=== PATIENT | male | born 1970 | race Hispanic/Latino ===

== ENCOUNTER 2018-04-22 13:16 | Emergency (ER) ==
[~2018-04-22] VITALS: Ht 170.2 cm; Wt 149.7 kg
--- OUTSIDE RECORDS SUMMARY | 2018-04-22 13:19 | XMS REPORT | Continuity of Care Document ---
Author Author [facility] Interface Address Unknown Phone Unavailable Problems Problem Status Onset Date Classification Date Reported Comments Source M62.82 - RHABDOMYOLYSIS Active 09/17/2017 [facility] ANKLE PAIN, LEUKOCYTOSIS Active 01/11/2014 [facility] LEG PAIN Active 01/11/2014 [facility] DIZZY Active 02/20/2011 [facility] LEUKOCYTOSIS NOS Active [facility] Medications Medication Details Route Status Patient Instructions Ordering Provider Order Date Source Amoxicillin 875 MG / Clavulanate 125 MG Oral Tablet [Augmentin 875-mg] 875 mg=1 tab, PO, Q12H, # 14 tab, 0 Refill(s) Active 01/14/2014 [facility] clindamycin 300 mg oral capsule 300 mg=1 cap, PO, Q6H, # 40 cap, 0 Refill(s) Inactive 01/14/2014 [facility] Colchicine 0.6 MG Oral Tablet 0.6 mg=1 tab, PO, TID, # 2 tab, 0 Refill(s) Active 01/14/2014 [facility] Colcrys 0.6 mg, 1 tab, Route: PO, Drug form: TAB, TID, Dosing Weight 159.091, kg, Start date: 01/12/14 18:00:00, Duration: 30 day, Stop date: 02/11/14 17:00:00 No Longer Active 01/12/2014 [facility] Zosyn 3.375 gm, 100 mL, Route: IVPB, Drug form: PDR/INJ, [id number], Dosing Weight 159.091, kg, CrCl Notes: (Same as: Zosyn) Infuse over 4 hours. Activate and reconstitute before use. Dosing based on Piperacillin component No Longer Active 01/12/2014 [facility] Enoxaparin 40 mg, 0.4 mL, Route: SUB-Q, Drug form: INJ, [id number], Dosing Weight 159.091, kg, Consider for obese patients, Start date: 01/12/14 10:00:00, Duration: 30 day, Stop date: 02/10/14 22:00:00Notes: (Same as: Lovenox) No Longer Active 01/12/2014 [facility] Saline Flush 0.9% 10 ml, Route: IVP, Drug Form: INJ, Dosing Weight 159.091, kg, PRN, PRN Line Flush, Start date: 01/12/14 6:31:00, Duration: 30 day, Stop date: 02/11/14 6:30:00Notes: (Same as: BD Posiflush) No Longer Active 01/12/2014 [facility] D5W 1/2NS + KCL 20mEq/L 1000ml (Premix) 1000 mL 1,000 mL, Rate: 70 ml/hr, Infuse over: 14.3 hr, Route: IV, Dosing Weight 159.091 kg, Total Volume: 1,000, Start date: 01/12/14 6:31:00, Duration: 30 day, Stop date: 02/11/14 6:30:00Notes: PREMIX IV - Do Not Alter No Longer Active 01/12/2014 [facility] Morphine 4 mg, 2 mL, Route: IVP, Drug form: INJ, Q3H, Dosing Weight 159.091, kg, PRN Pain Score 4-6, Start date: 01/12/14 6:31:00, Duration: 30 day, Stop date: 02/11/14 6:30:00Notes: (Same as:MORPhine Sulfate) No Longer Active 01/12/2014 [facility] Ondansetron 4 mg, 2 mL, Route: IVP, Drug form: INJ, Q8H, Dosing Weight 159.091, kg, PRN Nausea & Vomiting, Start date: 01/12/14 6:31:00, Duration: 30 day, Stop date: 02/11/14 6:30:00Notes: (Same as: Zofran) No Longer Active 01/12/2014 [facility] Zosyn 3.375 gm, Route: IVPB, Drug form: PDR/INJ, ONCE, Dosing Weight 159.091, kg, Priority: STAT, Start date: 01/12/14 4:41:00, Stop date: 01/12/14 4:41:00 Inactive 01/12/2014 [facility] Ketorolac 30 mg, 1 mL, Route: IVP, Drug form: INJ, ONCE, Dosing Weight 159.091, kg, Priority: STAT, Start date: 01/11/14 23:25:00, Stop date: 01/11/14 23:25:00Notes: (Same as:Toradol) IV bolus must be given >15 seconds. Give IM administration slowly and deeply into the muscle. Not for use > 4 days Inactive 01/12/2014 [facility] Morphine 4 mg, Route: IVP, ONCE, Dosing Weight 159.091, kg, Priority: STAT, Start date: 01/11/14 23:21:00, Stop date: 01/11/14 23:21:00 Inactive 01/12/2014 [facility] Valium 5 mg oral tablet 5 mg, 1 tab, PO, Bedtime, PRN, 7 tab, Prn Dizziness, Substitution Allowed PO Active [facility] 02/20/2011 [facility] Zofran ODT 4 mg oral tablet, disintegrating 4 mg, 1 tab, PO, TID, PRN, 10 tab, Nausea and Vomiting, Substitution Allowed PO Active [facility] 02/20/2011 [facility] Antivert 25 mg oral tablet 25 mg, 1 tab, PO, TID, PRN, 30 tab, as needed for dizziness, Substitution Allowed PO Active [facility] 02/20/2011 [facility] ondansetron 4 mg, Route: PO, Drug form: TABDIS, ONCE, Priority: STAT, Start date: 02/20/11 12:08:00, Stop date: 02/20/11 12:08:00 PO No Longer Active [facility] 02/20/2011 [facility] Valium 5 mg, Route: PO, Drug form: TAB, ONCE, Start date: 02/20/11 12:07:00, Stop date: 02/20/11 12:07:00 PO No Longer Active [facility] 02/20/2011 [facility] Antivert 25 mg, Route: PO, Drug form: TAB, ONCE, Start date: 02/20/11 12:07:00, Stop date: 02/20/11 12:07:00 PO No Longer Active [facility] 02/20/2011 [facility] Allergies, Adverse Reactions, Alerts Substance Category Reaction Severity Reaction type Status Date Reported Comments Source Immunizations Immunization Date Given Site Status Last Updated Comments Source Results Order Name Results Value Reference Range Date Interpretation Comments Source Ext Lower limited non vascular US Ext Lower limited non vascular US EXAM: EXTREMITY LOWER NONVASCULAR ULTRASOUND DATE: 09/17/2017 INDICATION: Rhabdomyolysis. Concern for fluid collection. Cellulitis. COMPARISON: None. TECHNIQUE: Grayscale and color images of the left thigh were obtained. FINDINGS: Underlying subcutaneous thickening of the left medial thigh with edema but without drainable fluid collections. IMPRESSION: Left thigh cellulitis or edema without drainable fluid collections. 09/17/2017 - - Read by: Delmar John MD Dictated Date/time: 09/17/17 16:42 Electronically Signed by: Delmar John MD 09/17/17 16:46 FINAL REPORT [facility] Eosinophils # 0.3 K/CMM 0.0 - 0.5 01/14/2014 [facility] Eosinophils 4.1 % 0.0 - 4.0 01/14/2014 [facility] Monocytes 7.1 % 2.0 - 12.0 01/14/2014 [facility] Basophils 0.5 % 0.0 - 1.0 01/14/2014 [facility] Monocytes # 0.5 K/CMM 0.0 - 0.8 01/14/2014 [facility] Lymphocytes 36.1 % 20.0 - 40.0 01/14/2014 [facility] Segs 52.2 % 45.0 - 75.0 01/14/2014 [facility] Segs-Bands # 3.7 K/CMM 1.5 - 8.1 01/14/2014 [facility] Lymphocytes # 2.6 K/CMM 1.0 - 5.5 01/14/2014 [facility] MCHC 33.5 g/dL 32.0 - 36.0 01/14/2014 [facility] Platelet 163 K/CMM 133 - 450 01/14/2014 [facility] RDW 13.7 % 11.5 - 14.5 01/14/2014 [facility] MPV 10.3 fL 7.4 - 10.4 01/14/2014 [facility] MCV 87.7 fL 80.0 - 94.0 01/14/2014 [facility] MCH 29.4 pg 27.0 - 31.0 01/14/2014 [facility] WBC 7.2 K/CMM 3.7 - 10.4 01/14/2014 [facility] Hgb 13.6 g/dL 14.0 - 18.0 01/14/2014 [facility] HEMATOLOGY Hct 40.6 % 42.0 - 54.0 01/14/2014 [facility] HEMATOLOGY RBC 4.63 M/CMM 4.70 - 6.10 01/14/2014 [facility] Foot w/wo contrast CT Foot w/wo contrast CT Examination: CT scan of the right ankle and foot with and without contrast without contrast. HISTORY: Pain, Trauma COMPARISON: Plain films of the right ankle and foot from 01/11/2014 DLP: 651.55 TECHNIQUE: Multiple axial CT images of the right ankle and foot were obtained with and without the administration of intravenous contrast. Multiplanar reformatted images were subsequently performed. FINDINGS: No acute bony fracture, joint dislocation, or suspicious osseous erosion is seen. There is mild tibiotalar joint osteoarthrosis with mild joint space narrowing and marginal osteophyte formation. Posterior and plantar calcaneal enthesophytes are seen. The tendons about the ankle and foot are grossly intact. There is mild bimalleolar superficial soft tissue along the ankle extending along the dorsum of the foot. No rim-enhancing hypodense fluid collection to suggest abscess is seen. IMPRESSION: 1. No acute bony abnormality of the right ankle or right foot. 2. Mild tibiotalar joint osteoarthrosis. 3. Mild nonspecific edema about the ankle extending along the dorsum of the foot. 4. No rim-enhancing fluid collection. SL: 12 01/13/2014 - - Read by: Larry Sage MD Dictated Date/time: 01/13/14 15:50 Electronically Signed by: Larry Sage MD 01/13/14 15:55 FINAL REPORT [facility] Ankle w/wo contrast CT Ankle w/wo contrast CT Examination: CT scan of the right ankle and foot with and without contrast without contrast. HISTORY: Pain, Trauma COMPARISON: Plain films of the right ankle and foot from 01/11/2014 DLP: 651.55 TECHNIQUE: Multiple axial CT images of the right ankle and foot were obtained with and without the administration of intravenous contrast. Multiplanar reformatted images were subsequently performed. FINDINGS: No acute bony fracture, joint dislocation, or suspicious osseous erosion is seen. There is mild tibiotalar joint osteoarthrosis with mild joint space narrowing and marginal osteophyte formation. Posterior and plantar calcaneal enthesophytes are seen. The tendons about the ankle and foot are grossly intact. There is mild bimalleolar superficial soft tissue along the ankle extending along the dorsum of the foot. No rim-enhancing hypodense fluid collection to suggest abscess is seen. IMPRESSION: 1. No acute bony abnormality of the right ankle or right foot. 2. Mild tibiotalar joint osteoarthrosis. 3. Mild nonspecific edema about the ankle extending along the dorsum of the foot. 4. No rim-enhancing fluid collection. SL: 12 01/13/2014 - - Read by: Larry Sage MD Dictated Date/time: 01/13/14 15:50 Electronically Signed by: Larry Sage MD 01/13/14 15:55 FINAL REPORT [facility] CHEM PANEL Magnesium Lvl 2.0 mg/dL 1.8 - 2.4 01/13/2014 [facility] CHEM PANEL Calcium Lvl 8.7 mg/dL 8.5 - 10.5 01/13/2014 [facility] CHEM PANEL CO2 20 meq/L 24 - 32 01/13/2014 [facility]M PANEL Chloride Lvl 108 meq/L 95 - 109 01/13/2014 [facility]M PANEL Potassium Lvl 4.4 meq/L 3.5 - 5.1 01/13/2014 [facility] CHEM PANEL Creatinine Lvl 0.8 mg/dL 0.5 - 1.4 01/13/2014 [facility] CHEM PANEL Sodium Lvl 139 meq/L 135 - 145 01/13/2014 [facility] CHEM PANEL BUN 13 mg/dL 7 - 22 01/13/2014 [facility] CHEM PANEL Glucose Lvl 107 mg/dL 70 - 99 01/13/2014 3Interpretive Data: Adult reference range values reflect the clinical guidelines of the [place] [employer]. [facility] CHEM PANEL eGFR 109 mL/min/1.73m2 01/13/2014 1Result Comment: The eGFR is calculated using the CKD-EPI formula. In most young, healthy individuals the eGFR will be >90 mL/min/1.73m2. The eGFR declines with age. An eGFR of 60-89 may be normal in some populations, particularly the elderly, for whom the CKD-EPI formula has not been extensively validated. Use of the eGFR is not recommended in the following populations: Individuals with unstable creatinine concentrations, including patients and those with serious co-morbid conditions. Patients with extremes in muscle mass or diet. The data above are obtained from the National Kidney Disease Education Program (NKDEP) which additionally recommends that when the eGFR is used in patients with extremes of body mass index for purposes of drug dosing, the eGFR should be multiplied by the estimated BMI. [facility] CHEM PANEL AGAP 15.4 meq/L 10.0 - 20.0 01/13/2014 [facility] HEMATOLOGY Segs-Bands # 6.5 K/CMM 1.5 - 8.1 01/13/2014 [facility] HEMATOLOGY Basophils 0.9 % 0.0 - 1.0 01/13/2014 [facility] HEMATOLOGY Eosinophils 2.8 % 0.0 - 4.0 01/13/2014 [facility] HEMATOLOGY Monocytes 5.7 % 2.0 - 12.0 01/13/2014 [facility] HEMATOLOGY Lymphocytes 28.3 % 20.0 - 40.0 01/13/2014 [facility] HEMATOLOGY Basophils # 0.1 K/CMM 0.0 - 0.2 01/13/2014 [facility] HEMATOLOGY Eosinophils # 0.3 K/CMM 0.0 - 0.5 01/13/2014 [facility] HEMATOLOGY Monocytes # 0.6 K/CMM 0.0 - 0.8 01/13/2014 [facility] HEMATOLOGY Lymphocytes # 3.0 K/CMM 1.0 - 5.5 01/13/2014 [facility] HEMATOLOGY Segs 62.3 % 45.0 - 75.0 01/13/2014 [facility] MCH 28.7 pg 27.0 - 31.0 01/13/2014 [facility] MCV 87.1 fL 80.0 - 94.0 01/13/2014 [facility] Hct 40.1 % 42.0 - 54.0 01/13/2014 [facility] Hgb 13.2 g/dL 14.0 - 18.0 01/13/2014 [facility] RBC 4.61 M/CMM 4.70 - 6.10 01/13/2014 [facility] WBC 10.5 K/CMM 3.7 - 10.4 01/13/2014 [facility] MCHC 33.0 g/dL 32.0 - 36.0 01/13/2014 [facility] Platelet 142 K/CMM 133 - 450 01/13/2014 [facility] MPV 10.9 fL 7.4 - 10.4 01/13/2014 [facility] RDW 13.4 % 11.5 - 14.5 01/13/2014 [facility] CHEM PANEL Uric Acid 8.1 mg/dL 3.8 - 8.0 01/12/2014 [facility] CHEM PANEL BUN 15 mg/dL 7 - 22 01/12/2014 [facility] CHEM PANEL Glucose Lvl 130 mg/dL 70 - 99 01/12/2014 4Interpretive Data: Adult reference range values reflect the clinical guidelines of the [place] [employer]. [facility] CHEM PANEL AGAP 11.8 meq/L 10.0 - 20.0 01/12/2014 [facility] CHEM PANEL Calcium Lvl 9.2 mg/dL 8.5 - 10.5 01/12/2014 [facility] CHEM PANEL CO2 25 meq/L 24 - 32 01/12/2014 [facility] CHEM PANEL Chloride Lvl 102 meq/L 95 - 109 01/12/2014 [facility] CHEM PANEL Creatinine Lvl 1.0 mg/dL 0.5 - 1.4 01/12/2014 [facility] CHEM PANEL Sodium Lvl 135 meq/L 135 - 145 01/12/2014 [facility] CHEM PANEL Potassium Lvl 3.8 meq/L 3.5 - 5.1 01/12/2014 [facility] CHEM PANEL eGFR 92 mL/min/1.73m2 01/12/2014 2Result Comment: The eGFR is calculated using the CKD-EPI formula. In most young, healthy individuals the eGFR will be >90 mL/min/1.73m2. The eGFR declines with age. An eGFR of 60-89 may be normal in some populations, particularly the elderly, for whom the CKD-EPI formula has not been extensively validated. Use of the eGFR is not recommended in the following populations: Individuals with unstable creatinine concentrations, including patients and those with serious co-morbid conditions. Patients with extremes in muscle mass or diet. The data above are obtained from the National Kidney Disease Education Program (NKDEP) which additionally recommends that when the eGFR is used in patients with extremes of body mass index for purposes of drug dosing, the eGFR should be multiplied by the estimated BMI. [facility] HEMATOLOGY Platelet 195 K/CMM 133 - 450 01/12/2014 [facility] HEMATOLOGY MCH 28.8 pg 27.0 - 31.0 01/12/2014 [facility] HEMATOLOGY RDW 13.5 % 11.5 - 14.5 01/12/2014 [facility] HEMATOLOGY MCHC 33.7 g/dL 32.0 - 36.0 01/12/2014 [facility] MPV 10.5 fL 7.4 - 10.4 01/12/2014 [facility] WBC 12.8 K/CMM 3.7 - 10.4 01/12/2014 [facility] Hgb 14.2 g/dL 14.0 - 18.0 01/12/2014 [facility] RBC 4.92 M/CMM 4.70 - 6.10 01/12/2014 [facility] MCV 85.6 fL 80.0 - 94.0 01/12/2014 [facility] Hct 42.1 % 42.0 - 54.0 01/12/2014 [facility] Sed Rate 17 mm/h 0 - 15 01/12/2014 [facility] Segs-Bands # 8.6 K/CMM 1.5 - 8.1 01/12/2014 [facility] Basophils 0.6 % 0.0 - 1.0 01/12/2014 [facility] Monocytes # 0.9 K/CMM 0.0 - 0.8 01/12/2014 [facility] Eosinophils # 0.3 K/CMM 0.0 - 0.5 01/12/2014 [facility] Basophils # 0.1 K/CMM 0.0 - 0.2 01/12/2014 [facility] Segs 67.0 % 45.0 - 75.0 01/12/2014 [facility] Eosinophils 2.1 % 0.0 - 4.0 01/12/2014 [facility] Monocytes 7.1 % 2.0 - 12.0 01/12/2014 [facility] Lymphocytes 23.2 % 20.0 - 40.0 01/12/2014 [facility] Lymphocytes # 3.0 K/CMM 1.0 - 5.5 01/12/2014 [facility] IMMUNOLOGY C-REACTIVE PROTEIN 17.7 mg/L <=2.9 mg/L 01/12/2014 [facility] Ankle 3 views Ankle 3 views Right ankle, 3 views: CLINICAL HISTORY: Pain and swelling 1. Mild to moderate diffuse soft tissue thickening greatest about the medial malleolus. No definite joint effusion. 2. Mild osteoarthritis along with calcaneal spurs. 3. No acute fracture, dislocation, or focal osseous lesion is appreciated. SL:17 01/11/2014 - - Read by: Ryne Camraa MD Dictated Date/time: 01/11/14 23:40 Electronically Signed by: Ryne Camara MD 01/11/14 23:42 FINAL REPORT [facility] Foot series Foot series Right foot, 3 views: CLINICAL HISTORY: Pain and swelling 1. Mild to moderate diffuse soft tissue thickening. 2. Mild osteoarthritis. 3. No acute fracture, dislocation, or focal osseous lesion is appreciated. An accessory ossicle is seen adjacent to the cuboid. SL:17 01/11/2014 - - Read by: Ryne Camara MD Dictated Date/time: 01/11/14 23:42 Electronically Signed by: Ryne Camara MD 01/11/14 23:43 FINAL REPORT [facility] CHEMISTRY Troponin-I null 0.00 - 0.40 02/20/2011 Normal [facility] CHEMISTRY CK MB 0.6 ng/mL 0.5 - 3.6 02/20/2011 Normal [facility] CHEMISTRY Total CK 123.0 U/L 12 - 191 02/20/2011 Normal [facility] CHEMISTRY AGAP 13.9 meq/L 10.0 - 20.0 02/20/2011 Normal [facility] CHEMISTRY AST 21.0 U/L 0 - 37 02/20/2011 Normal [facility] CHEMISTRY A/G Ratio 1.1 0.7 - 1.6 02/20/2011 Normal [facility] CHEMISTRY B/C Ratio 12.0 6 - 25 02/20/2011 Normal [facility] CHEMISTRY Globulin 3.8 g/dL 2.0 - 4.0 02/20/2011 Normal [facility] CHEMISTRY Bili Total 0.5 mg/dL 0.2 - 1.3 02/20/2011 Normal [facility] CHEMISTRY Total Protein 7.9 g/dL 6.4 - 8.4 02/20/2011 Normal [facility] CHEMISTRY CO2 24.0 meq/L 24 - 32 02/20/2011 Normal [facility] CHEMISTRY Alk Phos 66.0 U/L 39 - 136 02/20/2011 Normal [facility] CHEMISTRY ALT 56.0 U/L 0 - 65 02/20/2011 Normal [facility] CHEMISTRY Calcium Lvl 8.9 mg/dL 8.5 - 10.5 02/20/2011 Normal [facility] CHEMISTRY Albumin Lvl 4.1 g/dL 3.5 - 5.0 02/20/2011 Normal [facility] CHEMISTRY Creatinine Lvl 1.0 mg/dL 0.5 - 1.4 02/20/2011 Normal [facility] CHEMISTRY BUN 12.0 mg/dL 7 - 22 02/20/2011 Normal [facility] CHEMISTRY Sodium Lvl 139.0 meq/L 135 - 145 02/20/2011 Normal [facility] CHEMISTRY Potassium Lvl 3.9 meq/L 3.5 - 5.1 02/20/2011 Normal [facility] CHEMISTRY Chloride Lvl 105.0 meq/L 95 - 109 02/20/2011 Normal [facility] CHEMISTRY Glucose Lvl 98.0 mg/dL 02/20/2011 NA 2Interpretive Data: Reference Ranges : 0 - 7 days : 41 - 90 mg/dL7 days - 150 yrs : 70 - 99 mg/dL (fasting), based on the clinical recommendations of the [place] [employer]. [facility] CHEMISTRY CK MB Index 0.5 0.0 - 2.5 02/20/2011 Normal [facility] HEMATOLOGY RDW 13.0 % 11.5 - 14.5 02/20/2011 Normal [facility] HEMATOLOGY MPV 10.2 fL 7.4 - 10.4 02/20/2011 Normal [facility] HEMATOLOGY Platelet 210.0 K/CMM 133 - 450 02/20/2011 Normal [facility] HEMATOLOGY Hct 42.6 % 42.0 - 54.0 02/20/2011 Normal [facility] HEMATOLOGY MCH 29.8 pg 27.0 - 31.0 02/20/2011 Normal [facility] HEMATOLOGY MCV 85.7 fL 80.0 - 94.0 02/20/2011 Normal [facility] HEMATOLOGY MCHC 34.8 g/dL 32.0 - 36.0 02/20/2011 Normal [facility] HEMATOLOGY RBC 4.97 M/CMM 4.70 - 6.10 02/20/2011 Normal [facility] HEMATOLOGY WBC 9.5 K/CMM 3.7 - 10.4 02/20/2011 Normal [facility] HEMATOLOGY Hgb 14.8 g/dL 14.0 - 18.0 02/20/2011 Normal [facility] HEMATOLOGY Lymphocytes # 2.5 K/CMM 1.0 - 5.5 02/20/2011 Normal [facility] HEMATOLOGY Segs-Bands # 6.1 K/CMM 1.5 - 8.1 02/20/2011 Normal [facility] HEMATOLOGY Eosinophils 2.7 % 0.0 - 4.0 02/20/2011 Normal [facility] HEMATOLOGY Basophils # 0.1 K/CMM 0.0 - 0.2 02/20/2011 Normal [facility] HEMATOLOGY Monocytes # 0.5 K/CMM 0.0 - 0.8 02/20/2011 Normal [facility] HEMATOLOGY Eosinophils # 0.3 K/CMM 0.0 - 0.5 02/20/2011 Normal [facility] HEMATOLOGY Basophils 0.8 % 0.0 - 1.0 02/20/2011 Normal [facility] HEMATOLOGY Monocytes 5.6 % 2.0 - 12.0 02/20/2011 Normal [facility] HEMATOLOGY Segs 64.6 % 45.0 - 75.0 02/20/2011 Normal [facility] HEMATOLOGY Lymphocytes 26.3 % 20.0 - 40.0 02/20/2011 Normal [facility] BEDSIDE GLUCOSE TESTING Gluc POC Lifscn 128.0 mg/dL 65 - 110 02/20/2011 [place] 1Interpretive Data: Upper Reportable Limit: 200 mg/dL. [facility] BEDSIDE GLUCOSE TESTING Comment1 Notify RN/MD 02/20/2011 NA [facility] Vital Signs Vital Sign Value Date Comments Source Diastolic (mm Hg) 78 01/14/2014 [facility] Respitory Rate 16 01/14/2014 [facility] Systolic (mm Hg) 124 01/14/2014 [facility] Heart Rate 55 01/14/2014 [facility] Temperature Oral (F) 97.9 F 01/14/2014 [facility] Temperature Oral (F) 98.2 F 01/14/2014 [facility] Heart Rate 49 01/14/2014 [facility] Respitory Rate 16 01/14/2014 [facility] Systolic (mm Hg) 116 01/14/2014 [facility] Diastolic (mm Hg) 68 01/14/2014 [facility] Respitory Rate 16 01/14/2014 [facility] Temperature Oral (F) 98.1 F 01/14/2014 [facility] Diastolic (mm Hg) 65 01/14/2014 [facility] Systolic (mm Hg) 105 01/14/2014 [facility] Heart Rate 57 01/14/2014 [facility] Height 170.18 cm 01/12/2014 [facility] BMI Calculated 54.93 01/12/2014 [facility] Weight 159.091 01/12/2014 [facility] Temperature Oral (F) 98.2 F 02/20/2011 [facility] Respitory Rate 16.0 02/20/2011 [facility] Systolic (mm Hg) 132.0 02/20/2011 [facility] Heart Rate 64.0 02/20/2011 [facility] Diastolic (mm Hg) 68.0 02/20/2011 [facility] Heart Rate 68.0 02/20/2011 [facility] Respitory Rate 16.0 02/20/2011 [facility] Systolic (mm Hg) 136.0 02/20/2011 [facility] Diastolic (mm Hg) 68.0 02/20/2011 [facility] Weight 150.0 02/20/2011 [facility] Height 170.18 cm 02/20/2011 [facility] Temperature Oral (F) 98.2 F 02/20/2011 [facility] Systolic (mm Hg) 137.0 02/20/2011 [facility] Diastolic (mm Hg) 68.0 02/20/2011 [facility] Respitory Rate 20.0 02/20/2011 [facility] Heart Rate 60.0 02/20/2011 [facility] Encounters Location Location Details Encounter Type Encounter Number Reason For Visit Attending Provider ADM Date DC Date Status Source [facility] Emergency [id number] BLACK RODRIGUEZ 02/20/2011 02/20/2011 Active [facility] Inpatient [id number] Robb Fortune 01/12/2014 01/14/2014 [facility] [place] [facility] [id number] Jermaine Mir 09/17/2017 09/18/2017 [facility] Procedures Procedure Code Date Perfomer Comments Source Repair of hernia of abdominal wall [id number] [facility] Repair of hernia of abdominal wall [id number] [facility]
--- OUTSIDE RECORDS SUMMARY | 2018-04-22 13:19 | XMS REPORT | Summary of Care ---
Author Organization Unknown Address Unknown Phone Unavailable Encounter [facility]eta(MATEO) [id number] Date(s): 01/11/14 - 01/14/14 [facility] [address] [place], [place] [id number] [place] [address] Discharge Disposition: Home Physician Attending: Robb Fortune MD Physician Admitting: Robb Fortune MD Reason for Visit RT ANKLE PAIN, LEUKOCYTOSIS Vital Signs 1 2 3 Most recent to oldest [Reference Range]: 170.18 cm (01/11/14 10:37 PM) Height 97.9 DegF (01/14/14 12:00 PM) 98.2 DegF (01/14/14 8:00 AM) 98.1 DegF (01/14/14 4:00 AM) Temperature Oral [96.4-99.1 DegF] 124 mmHg (01/14/14 12:00 PM) 116 mmHg (01/14/14 8:00 AM) 105 mmHg (01/14/14 4:00 AM) Systolic Blood Pressure [90-140 mmHg] 78 mmHg (01/14/14 12:00 PM) 68 mmHg (01/14/14 8:00 AM) 65 mmHg (01/14/14 4:00 AM) Diastolic Blood Pressure [60-90 mmHg] 16 BRMIN (01/14/14 12:00 PM) 16 BRMIN (01/14/14 8:00 AM) 16 BRMIN (01/14/14 4:00 AM) Respiratory Rate [14-20 BRMIN] 55 bpm *LOW* (01/14/14 12:00 PM) 49 bpm *LOW* (01/14/14 8:00 AM) 57 bpm *LOW* (01/14/14 4:00 AM) Peripheral Pulse Rate [60-100 bpm] 159.091 kg (01/11/14 10:37 PM) Weight 54.93 m2 (01/11/14 10:37 PM) Body Mass Index Problem List No data available for this section Allergies, Adverse Reactions, Alerts Substance Reaction Severity Status NKDA Active Medications Augmentin 875 mg oral tablet 875 mg=1 tab, PO, Q12H, # 14 tab, 0 Refill(s) Start Date: 01/14/14 Stop Date: 01/21/14 Status: Ordered clindamycin 300 mg oral capsule 300 mg=1 cap, PO, Q6H, # 40 cap, 0 Refill(s) Start Date: 01/14/14 Stop Date: 01/14/14 Status: Discontinued colchicine 0.6 mg oral tablet 0.6 mg=1 tab, PO, TID, # 2 tab, 0 Refill(s) Start Date: 01/14/14 Status: Ordered Colcrys 0.6 mg, 1 tab, Route: PO, Drug form: TAB, TID, Dosing Weight 159.091, kg, Start date: 01/12/14 18:00:00, Duration: 30 day, Stop date: 02/11/14 17:00:00 Start Date: 01/12/14 Stop Date: 01/14/14 Status: Discontinued D5W 1/2NS + KCL 20mEq/L 1000ml (Premix) 1000 mL 1,000 mL, Rate: 70 ml/hr, Infuse over: 14.3 hr, Route: IV, Dosing Weight 159.091 kg, Total Volume: 1,000, Start date: 01/12/14 6:31:00, Duration: 30 day, Stop d ate: 02/11/14 6:30:00 Notes: PREMIX IV - Do Not Alter Start Date: 01/12/14 Stop Date: 01/14/14 Status: Discontinued enoxaparin 40 mg, 0.4 mL, Route: SUB-Q, Drug form: INJ, [id number], Dosing Weight 159.091, kg , Consider for obese patients, Start date: 01/12/14 10:00:00, Duration: 30 day, Stop date: 02/10/14 22:00:00 Notes: (Same as: Lovenox) Start Date: 01/12/14 Stop Date: 01/14/14 Status: Discontinued ketorolac 30 mg, 1 mL, Route: IVP, Drug form: INJ, ONCE, Dosing Weight 159.091, kg, Priori ty: STAT, Start date: 01/11/14 23:25:00, Stop date: 01/11/14 23:25:00 Notes: (Same as:Toradol) IV bolus must be given >15 seconds. Give IM administration slowly and deeply into the muscle. Not for use > 4 days Start Date: 01/11/14 Stop Date: 01/11/14 Status: Completed morphine Sulfate 4 mg, 2 mL, Route: IVP, Drug form: INJ, Q3H, Dosing Weight 159.091, kg, PRN Pain Score 4-6, Start date: 01/12/14 6:31:00, Duration: 30 day, Stop date: 02/11/14 6:30:00 Notes: (Same as:MORPhine Sulfate) Start Date: 01/12/14 Stop Date: 01/14/14 Status: Discontinued morphine Sulfate 4 mg, Route: IVP, ONCE, Dosing Weight 159.091, kg, Priority: STAT, Start date: 0 01/11/14 23:21:00, Stop date: 01/11/14 23:21:00 Start Date: 01/11/14 Stop Date: 01/11/14 Status: Discontinued ondansetron 4 mg, 2 mL, Route: IVP, Drug form: INJ, Q8H, Dosing Weight 159.091, kg, PRN Naus ea & Vomiting, Start date: 01/12/14 6:31:00, Duration: 30 day, Stop date: 02/11/14 6:30:00 Notes: (Same as: Zofran) Start Date: 01/12/14 Stop Date: 01/14/14 Status: Discontinued Saline Flush 0.9% 10 ml, Route: IVP, Drug Form: INJ, Dosing Weight 159.091, kg, PRN, PRN Line Flus h, Start date: 01/12/14 6:31:00, Duration: 30 day, Stop date: 02/11/14 6:30:00 Notes: (Same as: BD Posiflush) Start Date: 01/12/14 Stop Date: 01/14/14 Status: Discontinued Zosyn 3.375 gm, 100 mL, Route: IVPB, Drug form: PDR/INJ, [id number], Dosing Weight 159.09 1, kg, CrCl < 20 ml/min infuse over 4 hours, Start date: 01/12/14 10:00:00, Duration: 30 day, Stop date: 02/10/14 22:00:00 Notes: (Same as: Zosyn)Infuse over 4 hours. Activate and reconstitute before us e. Dosing based on Piperacillin component Start Date: 01/12/14 Stop Date: 01/14/14 Status: Discontinued Zosyn 3.375 gm, Route: IVPB, Drug form: PDR/INJ, ONCE, Dosing Weight 159.091, kg, Prio rity: STAT, Start date: 01/12/14 4:41:00, Stop date: 01/12/14 4:41:00 Start Date: 01/12/14 Stop Date: 01/12/14 Status: Completed Results ELECTROLYTES 1 2 3 Most recent to oldest [Reference Range]: 139 mEq/L (01/13/14 4:30 AM) 135 mEq/L (01/11/14 11:42 PM) Sodium Lvl [135-145 mEq/L] 4.4 mEq/L (01/13/14 4:30 AM) 3.8 mEq/L (01/11/14 11:42 PM) Potassium Lvl [3.5-5.1 mEq/L] 108 mEq/L (01/13/14 4:30 AM) 102 mEq/L (01/11/14 11:42 PM) Chloride Lvl [95-109 mEq/L] 20 mEq/L *LOW* (01/13/14 4:30 AM) 25 mEq/L (01/11/14 11:42 PM) CO2 [24-32 mEq/L] 15.4 mEq/L (01/13/14 4:30 AM) 11.8 mEq/L (01/11/14 11:42 PM) AGAP [10.0-20.0 mEq/L] CHEM PANEL 1 2 3 Most recent to oldest [Reference Range]: 0.8 mg/dL (01/13/14 4:30 AM) 1.0 mg/dL (01/11/14 11:42 PM) Creatinine Lvl [0.5-1.4 mg/dL] 109 mL/min/1.73m2 1 *NA* (01/13/14 4:30 AM) 92 mL/min/1.73m2 2 *NA* (01/11/14 11:42 PM) eGFR 13 mg/dL (01/13/14 4:30 AM) 15 mg/dL (01/11/14 11:42 PM) BUN [7-22 mg/dL] 107 mg/dL 3 *HI* (01/13/14 4:30 AM) 130 mg/dL 4 *HI* (01/11/14 11:42 PM) Glucose Lvl [70-99 mg/dL] 8.1 mg/dL *HI* (01/11/14 11:42 PM) Uric Acid [3.8-8.0 mg/dL] 8.7 mg/dL (01/13/14 4:30 AM) 9.2 mg/dL (01/11/14 11:42 PM) Calcium Lvl [8.5-10.5 mg/dL] 2.0 mg/dL (01/13/14 4:30 AM) Magnesium Lvl [1.8-2.4 mg/dL] 1Result Comment: The eGFR is calculated using [...] from the National Kidney Disease Education Program ( NKDEP) which additionally recommends that when the eGFR is used in patients with extremes of body mass index for purposes of drug dosing, the eGFR should be mul tiplied by the estimated BMI. 2Result Comment: The eGFR is calculated using [...] from the National Kidney Disease Education Program ( NKDEP) which additionally recommends that when the eGFR is used in patients with extremes of body mass index for purposes of drug dosing, the eGFR should be mul tiplied by the estimated BMI. 3Interpretive Data: Adult reference range values reflect the clinical guidelines of the [place] [employer]. 4Interpretive Data: Adult reference range values reflect the clinical guidelines of the [place] [employer]. IMMUNOLOGY 1 2 3 Most recent to oldest [Reference Range]: 17.7 mg/L *HI* (01/11/14 11:42 PM) CRP [<=2.9 mg/L] HEMATOLOGY 1 2 3 Most recent to oldest [Reference Range]: 7.2 K/CMM (01/14/14 7:01 AM) 10.5 K/CMM *HI* (01/13/14 4:30 AM) 12.8 K/CMM *HI* (01/11/14 11:42 PM) WBC [3.7-10.4 K/CMM] 4.63 M/CMM *LOW* (01/14/14 7:01 AM) 4.61 M/CMM *LOW* (01/13/14 4:30 AM) 4.92 M/CMM (01/11/14 11:42 PM) RBC [4.70-6.10 M/CMM] 13.6 g/dL *LOW* (01/14/14 7:01 AM) 13.2 g/dL *LOW* (01/13/14 4:30 AM) 14.2 g/dL (01/11/14 11:42 PM) Hgb [14.0-18.0 g/dL] 40.6 % *LOW* (01/14/14 7:01 AM) 40.1 % *LOW* (01/13/14 4:30 AM) 42.1 % (01/11/14 11:42 PM) Hct [42.0-54.0 %] 87.7 fL (01/14/14 7:01 AM) 87.1 fL (01/13/14 4:30 AM) 85.6 fL (01/11/14 11:42 PM) MCV [80.0-94.0 fL] 29.4 pg (01/14/14 7:01 AM) 28.7 pg (01/13/14 4:30 AM) 28.8 pg (01/11/14 11:42 PM) MCH [27.0-31.0 pg] 33.5 g/dL (01/14/14 7:01 AM) 33.0 g/dL (01/13/14 4:30 AM) 33.7 g/dL (01/11/14 11:42 PM) MCHC [32.0-36.0 g/dL] 13.7 % (01/14/14 7:01 AM) 13.4 % (01/13/14 4:30 AM) 13.5 % (01/11/14 11:42 PM) RDW [11.5-14.5 %] 163 K/CMM (01/14/14 7:01 AM) 142 K/CMM (01/13/14 4:30 AM) 195 K/CMM (01/11/14 11:42 PM) Platelet [133-450 K/CMM] 10.3 fL (01/14/14 7:01 AM) 10.9 fL *HI* (01/13/14 4:30 AM) 10.5 fL *HI* (01/11/14 11:42 PM) MPV [7.4-10.4 fL] 52.2 % (01/14/14 7:01 AM) 62.3 % (01/13/14 4:30 AM) 67.0 % (01/11/14 11:42 PM) Segs [45.0-75.0 %] 36.1 % (01/14/14 7:01 AM) 28.3 % (01/13/14 4:30 AM) 23.2 % (01/11/14 11:42 PM) Lymphocytes [20.0-40.0 %] 7.1 % (01/14/14 7:01 AM) 5.7 % (01/13/14 4:30 AM) 7.1 % (01/11/14 11:42 PM) Monocytes [2.0-12.0 %] 4.1 % *HI* (01/14/14 7:01 AM) 2.8 % (01/13/14 4:30 AM) 2.1 % (01/11/14 11:42 PM) Eosinophils [0.0-4.0 %] 0.5 % (01/14/14 7:01 AM) 0.9 % (01/13/14 4:30 AM) 0.6 % (01/11/14 11:42 PM) Basophils [0.0-1.0 %] 3.7 K/CMM (01/14/14 7:01 AM) 6.5 K/CMM (01/13/14 4:30 AM) 8.6 K/CMM *HI* (01/11/14 11:42 PM) Segs-Bands # [1.5-8.1 K/CMM] 2.6 K/CMM (01/14/14 7:01 AM) 3.0 K/CMM (01/13/14 4:30 AM) 3.0 K/CMM (01/11/14 11:42 PM) Lymphocytes # [1.0-5.5 K/CMM] 0.5 K/CMM (01/14/14 7:01 AM) 0.6 K/CMM (01/13/14 4:30 AM) 0.9 K/CMM *HI* (01/11/14 11:42 PM) Monocytes # [0.0-0.8 K/CMM] 0.3 K/CMM (01/14/14 7:01 AM) 0.3 K/CMM (01/13/14 4:30 AM) 0.3 K/CMM (01/11/14 11:42 PM) Eosinophils # [0.0-0.5 K/CMM] 0.1 K/CMM (01/13/14 4:30 AM) 0.1 K/CMM (01/11/14 11:42 PM) Basophils # [0.0-0.2 K/CMM] 17 mm/hr *HI* (01/11/14 11:42 PM) Sed Rate [0-15 mm/hr] Medications Administered During Your Visit No data available for this section Immunizations No data available for this section Procedures Procedure Type Body Site Date of Procedure Related Diagnosis Repair of hernia of abdominal wall Social History Social History Type Response Smoking Status Current some day smoker, Type: Cigarettes, Previous treatment: None, Ready to change: No, Concerns about tobacco use in household: No, Exposure to Tobacco Smoke None, Cigarette Smoking Last 365 Days Yes, Reg Smoking Cessation Counseling Yes Assessment and Plan Extracted from: Title: Clinical Document Author: Boo Barrett MD Date: 01/13/14 Patient seen and evaluated Full consult dictated
--- OUTSIDE RECORDS SUMMARY | 2018-04-22 13:19 | XMS REPORT | CCD ---
Author Author Auto Generated Organization [facility] Address Unknown Phone Unavailable Care Team Providers Care Dance Hall Hostess Name Role Phone Maurisio Lab CP Unavailable Daniella Brown CP [phone] Mariana Vernon CP Unavailable ChartServer, Login CP Unavailable Makayla Lee CP Unavailable Andreas Stephenson CP Racheal York CP SYSTEM, SYSTEM CP Unavailable PCP, Pt doesnt Remember Remember CP Unavailable Heidi Antonio CP [phone] Chante Minor CP Unavailable Allergies, Adverse Reactions, Alerts Substance Reaction Status NKDA ?? Active Medications Medication Instructions Start Date End Date Status ondansetron 4 mg, Route: PO, Drug form: TABDIS, 02/20/2011 02/20/2011 Completed ONCE, Priority: STAT, Start date: 02/20/11 12:08:00, Stop date: 02/20/11 12:08:00 Valium 5 mg, Route: PO, Drug form: TAB, 02/20/2011 02/20/2011 Completed ONCE, Start date: 02/20/11 12:07:00, Stop date: 02/20/11 12:07:00 Antivert 25 mg, Route: PO, Drug form: TAB, 02/20/2011 02/20/2011 Completed ONCE, Start date: 02/20/11 12:07:00, Stop date: 02/20/11 12:07:00 Valium 5 mg oral 5 mg, 1 tab, PO, Bedtime, PRN, 7 02/20/2011 02/25/2011 Ordered tablet tab, Prn Dizziness, Substitution Allowed Zofran ODT 4 mg oral 4 mg, 1 tab, PO, TID, PRN, 10 tab, 02/20/2011 ?? Ordered tablet, Nausea and Vomiting, Substitution disintegrating Allowed Antivert 25 mg oral 25 mg, 1 tab, PO, TID, PRN, 30 tab, 02/20/2011 03/02/2011 Ordered tablet as needed for dizziness, Substitution Allowed Vital Signs Most recent to [Reference Range]: 1 2 3 Height 170.18 cm (02/20/2011 10:41:00) ? Temperature Oral [96.4-99.1 DegF] 98.2 DegF (02/20/2011 14:22:00) ?? 98.2 DegF (02/20/2011 10:41:00) ? Systolic Blood Pressure [90-140 mmHg] 132 mmHg (02/20/2011 14:22:00) ?? 136 mmHg (02/20/2011 13:00:00) ?? 137 mmHg (02/20/2011 10:41:00) ?? Diastolic Blood Pressure [60-90 mmHg] 68 mmHg (02/20/2011 14:22:00) ?? 68 mmHg (02/20/2011 13:00:00) ?? 68 mmHg (02/20/2011 10:41:00) ?? Respiratory Rate [14-20 BRMIN] 16 BRMIN (02/20/2011 14:22:00) ?? 16 BRMIN (02/20/2011 13:00:00) ?? 20 BRMIN (02/20/2011 10:41:00) ?? Peripheral Pulse Rate [60-100 bpm] 64 bpm (02/20/2011 14:22:00) ?? 68 bpm (02/20/2011 13:00:00) ?? 60 bpm (02/20/2011 10:41:00) ?? Weight 150.000 kg (02/20/2011 10:41:00) ? Results BEDSIDE GLUCOSE TESTING Most recent to [Reference Range]: 1 Gluc POC Lifscn [65-110 mg/dL] 128 mg/dL 1 *HI* (02/20/2011 10:48:00) ?? Comment1 Notify RN/MD *NA* (02/20/2011 10:48:00) ?? 1Interpretive Data: Upper Reportable Limit: 200 mg/dL. CHEMISTRY Most recent to [Reference Range]: 1 Sodium Lvl [135-145 mEq/L] 139 mEq/L (02/20/2011 12:30:00) ?? Potassium Lvl [3.5-5.1 mEq/L] 3.9 mEq/L (02/20/2011 12:30:00) ?? Chloride Lvl [95-109 mEq/L] 105 mEq/L (02/20/2011 12:30:00) ?? CO2 [24-32 mEq/L] 24 mEq/L (02/20/2011:30:00) ?? AGAP [10.0-20.0 mEq/L] 13.9 mEq/L (02/20/2011 12:30:00) ?? Creatinine Lvl [0.5-1.4 mg/dL] 1.0 mg/dL (02/20/2011 12:30:00) ?? BUN [7-22 mg/dL] 12 mg/dL (02/20/2011 12:30:00) ?? B/C Ratio [6-25] 12 (02/20/2011 12:30:00) ?? Glucose Lvl 98 mg/dL 2 *NA* (02/20/2011 12:30:00) ?? Total Protein [6.4-8.4 g/dL] 7.9 g/dL (02/20/2011 12:30:00) ?? Albumin Lvl [3.5-5.0 g/dL] 4.1 g/dL (02/20/2011 12:30:00) ?? Globulin [2.0-4.0 g/dL] 3.8 g/dL (02/20/2011 12:30:00) ?? A/G Ratio [0.7-1.6] 1.1 (02/20/2011 12:30:00) ?? Calcium Lvl [8.5-10.5 mg/dL] 8.9 mg/dL (02/20/2011 12:30:00) ?? ALT [0-65 U/L] 56 U/L (02/20/2011 12:30:00) ?? AST [0-37 U/L] 21 U/L (02/20/2011 12:30:00) ?? Alk Phos [39-136 U/L] 66 U/L (02/20/2011:30:00) ?? Bili Total [0.2-1.3 mg/dL] 0.5 mg/dL (02/20/2011:30:00) ?? Total CK [12-191 U/L] 123 U/L (02/20/2011:30:00) ?? CK MB [0.5-3.6 ng/mL] 0.6 ng/mL (02/20/2011:30:) ?? CK MB Index [0.0-2.5] 0.5 (02/20/2011:30:00) ?? Troponin-I [0.00-0.40 ng/mL] <0.02 ng/mL (02/20/2011:30:00) ?? 2Interpretive Data: Reference Ranges : 0 - 7 days : 41 - 90 mg/dL7 days - 150 yrs : 70 - 99 mg/dL (fasting), based on the clinical recommendations of the [place] [employer]. HEMATOLOGY Most recent to oldest [Reference Range]: 1 WBC [3.7-10.4 K/CMM] 9.5 K/CMM (02/20/2011:30:00) ?? RBC [4.70-6.10 M/CMM] 4.97 M/CMM (02/20/2011:30:00) ?? Hgb [14.0-18.0 g/dL] 14.8 g/dL (02/20/2011::00) ?? Hct [42.0-54.0 %] 42.6 % (02/20/2011:30:00) ?? MCV [80.0-94.0 fL] 85.7 fL (02/20/2011:30:00) ?? MCH [27.0-31.0 pg] 29.8 pg (02/20/2011:30:00) ?? MCHC [32.0-36.0 g/dL] 34.8 g/dL (02/20/2011:30:00) ?? RDW [11.5-14.5 %] 13.0 % (02/20/2011:30:) ?? Platelet [133-450 K/CMM] 210 K/CMM (02/20/2011 12:30:00) ?? MPV [7.4-10.4 fL] 10.2 fL (02/20/2011 12:30:00) ?? Segs [45.0-75.0 %] 64.6 % (02/20/2011 12:30:00) ?? Lymphocytes [20.0-40.0 %] 26.3 % (02/20/2011 12:30:00) ?? Monocytes [2.0-12.0 %] 5.6 % (02/20/2011 12:30:00) ?? Eosinophils [0.0-4.0 %] 2.7 % (02/20/2011 12:30:00) ?? Basophils [0.0-1.0 %] 0.8 % (02/20/2011 12:30:00) ?? Segs-Bands # [1.5-8.1 K/CMM] 6.1 K/CMM (02/20/2011 12:30:00) ?? Lymphocytes # [1.0-5.5 K/CMM] 2.5 K/CMM (02/20/2011 12:30:00) ?? Monocytes # [0.0-0.8 K/CMM] 0.5 K/CMM (02/20/2011 12:30:00) ?? Eosinophils # [0.0-0.5 K/CMM] 0.3 K/CMM (02/20/2011 12:30:00) ?? Basophils # [0.0-0.2 K/CMM] 0.1 K/CMM (02/20/2011 12:30:00) ??
--- OUTSIDE RECORDS SUMMARY | 2018-04-22 13:20 | XMS REPORT | Summary of Care ---
Author Author [facility] Outpatient Imaging [facility] Outpatient Imaging [facility] Address Unknown Phone Unavailable Encounter [email or web address](FIN) [id number] Date(s): 09/17/17 - 09/17/17 [place] [address] [facility], [address] [place] [phone] Discharge Disposition: Home or Self Care Attending Physician: Jermaine Mir MD Vital Signs No data available for this section Problem List No data available for this section Allergies, Adverse Reactions, Alerts Substance Reaction Severity Status NKDA Active Medications No data available for this section Results No data available for this section Immunizations No data available for this section Procedures Procedure Date Related Diagnosis Body Site Status Repair of hernia of abdominal wall Completed Social History Social History Type Response Smoking Status Current some day smoker; Type: Cigarettes; Previous treatment: None; Ready to change: No; Concerns about tobacco use in household: No; Exposure to Tobacco Smoke None; Cigarette Smoking Last 365 Days Yes; Reg Smoking Cessation Counseling Yes entered on: 01/12/14 Assessment and Plan No data available for this section
[2018-04-22] MEDS ORDERED: ASPIRIN 81 MG CHEW TAB PO ONE (13:45)
--- NOTE | 2018-04-22 14:50 | NUR ---
Pt does not answer in the waiting room.
--- NOTE | 2018-04-22 18:55 | NUR ---
Multi[ple attempts to locate pt in the waiting area were unsuccessful.
== END 2018-04-22 18:59 | disposition left against medical advice (07) ==
LOC: ER 13:16
DX: R07.9 Chest pain, unspecified (principal)
CPT/HCPCS: 93005